=== PATIENT | female | born 1995 | race Two or more races ===

== ENCOUNTER 2017-10-16 23:07 | Emergency (ER) | payer MEDICAID ==
[~2017-10-16] VITALS: Ht 154.9 cm; Wt 59.0 kg
[2017-10-16 23:15] VITALS: BP 115/72
[2017-10-16] MEDS ORDERED: NKM (23:16)
[2017-10-16] MEDS ORDERED: Ketorolac 30mg Inj IV ONE (23:45)
--- NOTE | 2017-10-17 | Emergency Room Report ---
History of Present Illness General Chief Complaint: Abdominal Pain Source: Patient Present Illness HPI Is a 22-year-old female with no past medical history. She presents with left upper quadrant pain since 4 PM. No nausea no vomiting. Pain is sharp and radiating to the back. No rash. No urinary complaint. No hematuria. Pain is 8 out of 10. Nothing made it better. Nothing made it worse. no history of gallstone or alcohol use. Allergies: Coded Allergies: No Known Allergies (Unverified , 10/16/17) Patient History Past Medical History: see triage record, old chart reviewed Past Surgical History: none Pertinent Family History: none Last Menstrual Period: month ago Now: No Immunizations: other Reviewed Nursing Documentation: PMH: Agreed; PSxH: Agreed Nursing Documentation-PMH Past Medical History: No History, Except For Review of Systems Eye: Denies: eye pain, blurred vision ENT: Denies: ear pain, nose congestion, throat swelling Respiratory: Denies: cough, shortness of breath Cardiovascular: Denies: chest pain, palpitations Gastrointestinal: Reports: abdominal pain; Denies: diarrhea, nausea, vomiting Musculoskeletal: Denies: back pain, joint pain Skin: Denies: rash Neurological: Denies: headache, numbness Endocrine: Denies: increased thirst, increased urine Hematologic/Lymphatic: Denies: easy bruising All Other Systems: negative except mentioned in HPI Physical Exam Vital Signs Date Time Temp Pulse Resp B/P (MAP) Pulse Ox O2 Delivery O2 Flow Rate FiO2 10/16/17 23:11 98.1 79 16 115/72 99 Room Air 98.1 vitals normal Sp02 EP Interpretation: reviewed, normal General Appearance: well appearing, no apparent distress, alert Head: normocephalic, atraumatic Eyes: bilateral eye PERRL, bilateral eye EOMI ENT: hearing grossly normal, normal pharynx Neck: full range of motion, supple, no meningismus Respiratory: chest non-tender, lungs clear, normal breath sounds Cardiovascular #1: regular rate, rhythm, no murmur Gastrointestinal: normal bowel sounds, no mass, no organomegaly, no bruit, non- distended, tenderness - mild left upper quadrant Musculoskeletal: back normal, gait/station normal, normal range of motion Psychiatric: mood/affect normal Skin: warm/dry Medical Decision Making Diagnostic Impression: Primary Impression: Abdominal pain Qualified Codes: R10.12 - Left upper quadrant pain ER Course Patient with left upper quadrant pain waiting to her back. No evidence of pancreatitis, acute abdomen or obstruction. Could also be a rupture ovarian cyst. No rash indicate zoster. Patient felt better now. We'll discharge home. Lab Results Impression labs normal CT/MRI/US Diagnostic Results CT/MRI/US Diagnostic Results : Imaging Test Ordered: CT abdomen Impression Read by radiologist. No obstruction. Appendix unremarkable. Suspect involuting left ovarian cyst. Last Vital Signs Date Time Temp Pulse Resp B/P (MAP) Pulse Ox O2 Delivery O2 Flow Rate FiO2 10/16/17 23:52 98.1 10/16/17 23:15 79 16 115/72 99 Room Air Status: improved Disposition: HOME, SELF-CARE Condition: Stable Scripts Ibuprofen* (MOTRIN*) 600 Mg Tablet 600 MG ORAL THREE TIMES A DAY, #30 TAB 0 Refills Prov: DALILA FIGUEROA M.D. 10/17/17 Referrals: [facility]ERR[facility] (PCP) Additional Instructions: Follow-up with your in 7 days. Return if symptom worsen. DALILA FIGUEROA M.D. Oct 17, 2017 00:00
[2017-10-17 00:03] LABS: APPEARANCE,URINE CLEAR; BILIRUBIN, URINE NEGATIVE (NEGATIVE); COLOR,URINE PALE YELLOW; GLUCOSE, URINE (UA) NEGATIVE (NEGATIVE); KETONES,URINE NEGATIVE (NEGATIVE); LEUKOCYTE ESTERASE ,URINE NEGATIVE (NEGATIVE); NITRITE,URINE NEGATIVE (NEGATIVE); PH,URINE 7 (4.5-8.0); PROTEIN,URINE NEGATIVE (NEGATIVE); UROBILINOGEN,URINE NORMAL MG/DL (0.0-1.0)
[2017-10-17 00:05] LABS: ANION GAP 9 mmol/L (5-15); BLOOD UREA NITROGEN 9 mg/dL (7-18); CALCIUM 8.9 MG/DL (8.5-10.1); CARBON DIOXIDE 26 MMOL/L (21-32); CHLORIDE 102 MMOL/L (98-107); CREATININE 0.9 MG/DL (0.55-1.30); HEMATOCRIT 37.8 % (37.0-47.0); HEMOGLOBIN 12.5 G/DL (12.0-16.0); LYMPHOCYTES % (AUTO) 31.2 % (20.0-45.0); MEAN CORPUSCULAR VOLUME 81 FL (80-99); MONOCYTES % (AUTO) 6.9 % (1.0-10.0); PLATELET COUNT 268 K/UL (150-450); POTASSIUM 3.5 MMOL/L (3.5-5.1); RED BLOOD COUNT 4.64 M/UL (4.20-5.40); RED CELL DISTRIBUTION WIDTH 13.9 % (11.6-14.8); SODIUM 137 MMOL/L (136-145); WHITE BLOOD COUNT 8.2 K/UL (4.8-10.8)
[2017-10-17 00:09] LABS: ALANINE AMINOTRANSFERASE 28 U/L (12-78); ALBUMIN 3.6 G/DL (3.4-5.0); ALBUMIN/GLOBULIN RATIO 0.8 (1.0-2.7); ALKALINE PHOSPHATASE 89 U/L (46-116); ASPARTATE AMINO TRANSFERASE 23 U/L (15-37); BILIRUBIN,TOTAL 0.2 MG/DL (0.2-1.0)
[2017-10-17] MEDS ORDERED: IBUPROFEN600 MG ORAL (01:37)
[2017-10-17 01:40] VITALS: BP 112/77
[2017-10-17 01:45] VITALS: BP 115/72
--- NOTE | 2017-10-17 09:10 | Diagnostic Imaging Report ---
Indication: Abdominal pain Technique: CT scan of the abdomen and pelvis utilizing automated exposure control with intravenous contrast. Axial, sagittal and coronal images were obtained. CT dose: Total DLP 625 mGycm; CTDI vol 13.2 mGy Comparison: Lung bases are clear. Findings: Evaluation of bowel is limited without oral contrast material. Liver, adrenal glands, spleen and pancreas are unremarkable. There are no CT dense gallstones. There is mild fullness of the bilateral renal collecting systems, right greater than left. No ureteral calculi are identified. Bladder is distended. There is limited evaluation for renal calculi with contrast in the renal collecting systems. Small bowel loops are normal in caliber. There is no appendicitis. There is no free intraperitoneal air. There is trace fluid in the pelvic cul-de-sac. There is a 1.9 cm hyperdense left ovarian probable hemorrhagic/involuting cyst. Endplate Schmorl's nodes are seen. Mild degenerative changes of the spine are noted. Impression: Limited evaluation of the bowel without oral contrast. Mild fullness of the bilateral renal collecting systems/ureters, right greater than left but no obvious ureteral calculi. Correlation with urinalysis recommended. No evidence of appendicitis. Approximately 1.9 cm hyperdense left ovarian probable hemorrhagic or involuting cyst. Correlation with pelvic ultrasound recommended as indicated. Trace fluid in the pelvis. The CT scanner at [facility] is accredited by the [employer] and the scans are performed using protocols designed to limit radiation exposure to as low as reasonably achievable to attain images of sufficient resolution adequate for diagnostic evaluation.
== END 2017-10-17 01:45 | disposition home or self-care (01) ==
LOC: EMR 23:25
DX: R10.12 Left upper quadrant pain (principal)
CPT/HCPCS: 36415; 74177; 80053; 81003; 81025; 83690; 85025; 96374; 96375; 99284; J1885; Q9967